=== PATIENT | female | born 1980 | race African-American/Black ===

== ENCOUNTER 2016-10-09 00:45 | Emergency (ER) | payer MEDICAID ==
[~2016-10-09] VITALS: Ht 162.6 cm; Wt 58.6 kg
[2016-10-09 00:46] VITALS: BP 126/83
== END 2016-10-09 02:10 | disposition home or self-care (01) ==
LOC: ED 02:00
DX: S62.336A Displaced fracture of neck of fifth metacarpal bone, right hand, initial encounter for closed fracture (principal); W22.8XXA Striking against or struck by other objects, initial encounter; Y93.89 Activity, other specified; Y92.89 Other specified places as the place of occurrence of the external cause; Y99.8 Other external cause status
CPT/HCPCS: 29125